=== PATIENT | female | born 1945 | race Caucasian/White ===

== ENCOUNTER → 2018-07-16 | Outpatient (CLI) | payer MEDICARE, OTHER ==
[2018-07-16 17:04] LABS: ADD MAN DIFF? NO
[2018-07-16 17:09] LABS: WHITE BLOOD COUNT 5.1 10^3/ul (4.8-10.8)
[2018-07-16 17:09] LABS: ABNORMAL IP MESSAGE 1; BASOPHILS % 0.6 % (0.0-2.0); EOSINOPHILS # 0.1 10^3/ul (0.0-0.5); EOSINOPHILS % 2.4 % (0.0-7.0); HEMATOCRIT 40.7 % (37.0-47.0); HEMOGLOBIN 13.8 g/dl (12.0-16.0); LYMPHOCYTES # 1.3 10^3/ul (0.8-2.9); LYMPHOCYTES % 25.1 % (15.0-51.0); MEAN CORPUSCULAR HEMOGLOBIN 31.6 pg (29.0-33.0); MEAN CORPUSCULAR HGB CONC 33.9 g/dl (32.0-37.0); MEAN CORPUSCULAR VOLUME 93.1 fl (82.0-101.0); MEAN PLATELET VOLUME 13.1 fl (7.4-10.4); MONOCYTE # 0.4 10^3/ul (0.3-0.9); MONOCYTES % 7.1 % (0.0-11.0); NEUTROPHIL # 3.3 10^3/ul (1.6-7.5); NEUTROPHILS % 64.6 % (39.0-77.0); PLATELET COUNT 186 10^3/UL (140-415); RED BLOOD COUNT 4.37 10^6/ul (4.20-5.40); RED CELL DISTRIBUTION WIDTH 13.1 % (11.5-14.5)
[2018-07-16 17:10] LABS: POSITIVE DIFF @See below
[2018-07-16 17:33] LABS: BLOOD UREA NITROGEN 12 mg/dl (7-20)
[2018-07-16 17:33] LABS: CREATININE 0.73 mg/dl (0.44-1.00)
[2018-07-16 17:36] LABS: C-REACTIVE PROTEIN HIGH SENSI 0.03 mg/dl (0.00-0.74)
[2018-07-16 18:06] LABS: ERYTHROCYTE SEDIMENTATION RATE 8 mm/Hr (0-30)
== END | disposition home or self-care (01) ==
LOC: LAB 16:46
DX: H50.9 Unspecified strabismus (principal)
CPT/HCPCS: 82565; 84520; 85025; 85651; 86140